=== PATIENT | female | born 2000 | race Caucasian/White ===

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

== ENCOUNTER 2023-01-27 08:23 | Emergency (ER) | payer OTHER, SELFPAY ==
--- NOTE | ~2023-01-27 | XR_ITS ---
EXAMINATION: XR FOREARM, RIGHT CLINICAL INFORMATION: Laceration of forearm. Evaluate for foreign body. COMPARISON: None available. TECHNIQUE: AP and lateral views of the right forearm were obtained. FINDINGS: There is a linear soft tissue defect from laceration in the medial aspect of the proximal forearm without radiopaque foreign body. The elbow and wrist are normal. The radius and ulna are intact. XR/XR forearm RT 2V IMPRESSION: * Soft tissue laceration of the proximal forearm. * No evidence of radiopaque foreign body. * No acute osseous injury.
[2023-01-27 08:31] VITALS: BP 112/75; PULSE 92; RESP 16; TEMP 36.3; O2SAT 98; BMI 27.6
--- NOTE | 2023-01-27 09:13 | ED.WOUNDLAC ---
HPI - Wound/Laceration General Chief Complaint: Wound/Laceration Stated Complaint: R Arm Lac S/P Injury 01/27/23 Time Seen by Provider: 01/27/23 09:03 Source: patient and RN notes reviewed Mode of arrival: ambulatory Limitations: no limitations History of Present Illness HPI narrative: This is a 22 year old female presenting to the emergency department for evaluation of right forearm laceration which occurred this morning. Patient states that she was knocking on a glass window when it suddenly shattered and lacerated her right forearm. The ambulance brought her to [facility] where she was not seen and left prior to having this wound closed. Patient reports that she is right handed. Reports burning sensation around the wounds, otherwise pain well controlled. She is unsure when her last tetanus shot was, and has not been seen by primary care physician in about 6 years. Denies taking any medications at home to treat her current symptoms. No other complaints or concerns at this time. Onset (ago): day(s) Extremity Location: right: forearm Place: home Patient tetanus UTD: No Context: accidental Associated symptoms: pain Treatments prior to arrival: bandage Related Data Previous Rx's Medication Instructions Recorded cephalexin 500 mg capsule 500 mg PO QID 5 days #20 caps 01/27/23 ibuprofen 600 mg tablet 600 mg PO Q6-8H PRN pain #30 tabs 01/27/23 Allergies Allergy/AdvReac Type Severity Reaction Status Date / Time No Known Allergies Allergy Verified 01/27/23 09:12 Review of Systems Review of Systems: Yes all other systems are reviewed and are negative [facility] Social History Social History Advance Directives: No Advance Directives Information Provided: No Physical Exam Vital Signs: Vital Signs: Last Vital Signs Temp 97.3 F 01/27/23 08:31 Pulse 92 01/27/23 08:31 Resp 16 01/27/23 08:31 BP 112/75 01/27/23 08:31 Pulse Ox 98 01/27/23 08:31 O2 Del Method Room Air 01/27/23 08:31 BMI result Body Mass Index 27.6 Const: Other: General: Awake, alert, and oriented X3. No acute distress. HEENT: Normal inspection CVS: Normal heart rate and rhythm. Pulses normal. Respiratory: No respiratory distress Skin: Warm, dry, no rashes noted to exposed skin. Normal skin color. Normal skin turgor. Extremities: Right forearm: 2 4cm partial thickness lacerations noted to forearm. No active bleeding. Full ROM of all digits and elbow without difficulty. Neuro: Oriented X 3. No motor deficit. No sensory deficit. Course Reevaluation(s) Reevaluation #1: X-rays did not show any foreign body. Both wounds closed using 4-0 nylon sutures, see procedure note for further details. Patient tolerated procedure well without any complications or concerns. Wound dressed with bacitracin, patient given tetanus and department, and medicated with Motrin 600 mg by mouth. Patient discharged on ibuprofen and Keflex. Advised to return or go to any medical office to have these removed in 7-10 days. Patient understands and agrees with plan. Patient stable for discharge. Time: 12:25 Medications Administered Discontinued Medications Generic Name Dose Route Start Last Admin Trade Name Freq PRN Reason Stop Dose Admin Diphtheria/Tetanus/Acell Pertussis 0.5 ml 01/27/23 09:12 01/27/23 09:17 Diphth,Pertus(Acell),Tet Adult 0.5 Ml Syringe IM 01/27/23 09:13 0.5 ml .ONCE ONE Administration Ibuprofen 600 mg 01/27/23 12:20 01/27/23 12:28 Ibuprofen 600 Mg Tablet PO 01/27/23 12:21 600 mg ONCE ONE Administration Lidocaine HCl 5 ml 01/27/23 09:12 01/27/23 09:17 Lidocaine Hcl 1 % Mpf 5 Ml Vial INFILTRATI 01/27/23 09:13 5 ml ONCE ONE Administration Lidocaine HCl 5 ml 01/27/23 11:30 01/27/23 11:39 Lidocaine Hcl 1 % Mpf 5 Ml Vial INFILTRATI 01/27/23 11:31 5 ml ONCE ONE Administration Medical Decision Making Medical Decision Making MDM Narrative: This is a 22-year-old female presenting to the emergency department for evaluation of right forearm laceration which occurred this morning. On arrival, vital signs within normal limits. Patient has to 4 cm lacerations noted to her right forearm, requiring suture repair. Patient has full range of motion of all digits without any numbness and tingling. No tendon involvement injury suspected. Unsure when her last tetanus was, will update in the department today. Differential Diagnosis Differential Diagnoses: The differential diagnosis associated with the presentation includes Laceration, puncture wound, cellulitis, abrasion Procedures Laceration Laceration 1: Site: upper extremity Side (If applicable): right Size (cm): 4 Description: linear Depth: simple, single layer Local Anesthetic: lidocaine 1% Amount of anesthesia used (mL): 5 Pre-repair: wound explored, irrigated extensively and deep structures intact Skin layer closed with: nylon Size (cm): 4-0 Number of sutures: 7 Technique: simple, interrupted Laceration 2: Site: upper extremity Side (If applicable): right Size (cm): 4 Description: linear Depth: simple, single layer Local Anesthetic: lidocaine 1% Amount of anesthesia used (mL): 5 Pre-repair: wound explored, irrigated extensively and deep structures intact Skin layer closed with: nylon Size (cm): 4-0 Number of sutures: 7 Technique: simple, interrupted Discharge Plan Discharge Clinical Impression: Laceration Patient Disposition: Home, Self-Care Instructions: Care For Your Stitches (ED), Laceration (ED) Additional Instructions: You came to the emergency room for lacerations to your right arm. Please the wound clean and dry. You may rinse with warm soapy water. Do not pick or scratch at the wound. Please have sutures removed in 7-10 days. You may return here or go to a urgent care or primary care office to have these removed. Watch for any signs of infection including but not limited to fevers, chills, increased redness, drainage. Please take prescribed antibiotic as directed. Finish the entire course. We updated your tetanus vaccination in the department today. If any new or worsening symptoms occur please return for re-evaluation. Prescriptions: New cephalexin 500 mg capsule 500 mg PO QID 5 Days Qty: 20 0RF ibuprofen 600 mg tablet 600 mg PO Q6-8H PRN (Reason: pain) Qty: 30 0RF Discharge Date/Time: 01/27/23 12:33
[2023-01-27] MEDS: Diphth,Pertus(ACell),Tet Adult 0.5 ML SYRINGE IM (09:17)
[2023-01-27] MEDS: Lidocaine HCl 1 % MPF 5 ML VIAL INFILTRATI ×2 (09:17→11:39)
[2023-01-27] MEDS: Ibuprofen 600 MG TABLET PO (12:28)
== END 2023-01-27 12:33 | disposition home or self-care (01) ==
PROVIDERS: Emergency Provider Emergency Medicine
DX: S51.811A Laceration without foreign body of right forearm, initial encounter (principal); W25.XXXA Contact with sharp glass, initial encounter; Y93.9 Activity, unspecified; Y92.9 Unspecified place or not applicable; Y99.9 Unspecified external cause status
CPT/HCPCS: 12004; 73090; 90471; 90715; 99283; 99284

== ENCOUNTER 2023-02-24 07:00 | Emergency (ER) | payer OTHER, SELFPAY ==
--- NOTE | ~2023-02-24 | US_ITS ---
EXAMINATION: US OBSTETRICAL ULTRASOUND CLINICAL INFORMATION: with vaginal bleeding COMPARISON: None available. LMP: 01/16/2023. Gestational age by maternal dates is 5 weeks 4 days. Estimated date of delivery by maternal dates is 10/23/2023. TECHNIQUE: Routine transabdominal imaging of pelvis is performed. FINDINGS: The uterus is enlarged measuring 7.21) in length, 4.01) in AP and 6.3) in transverse dimension. There is a single intrauterine gestational sac with visible yolk sac. The pole and cardiac activity is not visualized. There is a small hypoechoic area question small subchorionic bleed versus early decidual reaction consider follow-up Gestational sac measures 1.16 x 0.80 x 0.6) corresponding to 5 weeks and 5 days. MATERNAL ADNEXA: The right maternal ovary measures 4.0 x 1.9 x 1.9 cm. There is anechoic corpus luteal cyst measuring 1.9 x 1.6 x 1.7 cm. The left maternal ovary measures 2.5 x 1.1 x 1.5 cm. It appears unremarkable. There is no significant maternal adnexal mass. No maternal pelvic ascites. US/US OB pelvic and transvaginal IMPRESSION: 1. Single intrauterine gestational sac measuring 5 weeks and 5 days. pole and cardiac activity is not seen. Likely too early in . Recommend follow-up in one to 2 weeks. 2. Suspect subchorionic tiny bleed versus decidual reaction. 3. Small corpus luteal cyst right ovary.
[2023-02-24 07:09] VITALS: BP 131/74; PULSE 75; RESP 16; TEMP 36.9; O2SAT 99; BMI 30.4
[2023-02-24 07:24] LABS: MANUAL DIFF FLAG NO
[2023-02-24 07:26] LABS: Basophils Absolute Auto 0.1 X10*3/uL (0.0-0.2); Basophils Percent Auto 0.4 % (0-2); Eosinophils Absolute Auto 0.3 X10*3/uL (0.0-0.4); Hematocrit 37.8 % (37.0-47.0); Imm Gran Pct Auto 0.7 % (0.0-0.4); Lymphocytes Percent Auto 19.8 % (20-40); Mean Corpuscular HGB Conc 34.4 g/dl (31.0-35.0); Mean Corpuscular Hemoglobin 32.2 pg (27.0-33.0); Mean Corpuscular Volume 93.6 fL (80.0-98.0); Mean Platelet Volume 10.2 fL (9.4-12.3); Monocytes Absolute Auto 1.1 X10*3/uL (0.1-1.2); Monocytes Percent Auto 7.3 % (2-11); Neutrophils Absolute Auto 10.6 x10*3/uL (2.0-8.3); Neutrophils Percent Auto 69.8 % (45-73); Platelet Count 301 X10*3/uL (160-400); Red Blood Count 4.04 X10*6/uL (4.20-5.50); Red Cell Distribution Width 12.3 % (11.0-16.0); White Blood Count 15.1 X10*3/uL (4.8-10.8)
[2023-02-24 07:30] LABS: UPreg QC Valid YES; Urine Pregnancy POSITIVE (NEGATIVE)
[2023-02-24 07:34] LABS: Color Urine Red; Glucose Urine UA Negative (Negative); Leukocyte Esterase Urine Negative (Negative); Nitrite Urine Negative (Negative); PH 5.5 (5.0-9.0); UMIC TRIGGER UACC YES; Urine Blood Large (3+) (Negative); Urine Ketones Negative (Negative); Urine Protein Trace mg/dL (Neg-Trace)
[2023-02-24 07:35] LABS: Appearance Urine Hazy; Bacteria Urine None Seen (None Seen); Hyaline Casts Urine 0-2 /LPF (0-2); RBC Urine >20 /HPF (0-2); Squamous Epithelial Cell Urine 0-2 /HPF (0-2); WBC Urine 0-5 /HPF (0-5)
[2023-02-24 07:43] LABS: Anion Gap 11 (12-20); Blood Urea Nitrogen 9 mg/dL (9-16); Calcium 9.2 mg/dL (8.4-10.2); Carbon Dioxide 22 mmol/L (22-29); Chloride 111 mmol/L (96-108); Creatinine Clr Calc Pharmacy 112.5; Estimated Glomerular Filt Rate > 60; Glucose Random 98 mg/dL (60-115); Potassium 4.6 mmol/L (3.3-5.1); Sodium 139 mmol/L (135-145)
--- NOTE | 2023-02-24 08:03 | PC.NURSE ---
Patient placed in [facility] 3. Admits to being 5 weeks ; woke up with +vaginal bleeding with small clots. Denies cramping. NAD. Resting on stretcher at this time. Waiting for provider evaluation
[2023-02-24 08:18] LABS: HCG Quantitative 15851 mIU/mL
[2023-02-24 10:01] LABS: Alanine Aminotransferase 19 U/L (0-31); Albumin Level 4.1 g/dL (3.5-5.0); Alkaline Phosphatase 50 U/L (39-117); Aspartate Amino Transferase 17 U/L (5-31); Bilirubin Direct < 0.2 mg/dL (0.0-0.5); Bilirubin Total 0.2 mg/dL (0.0-1.0); Total Protein 7.5 g/dL (6.5-8.0)
--- NOTE | 2023-02-24 10:30 | ED.GENADULT ---
HPI - General Adult General Chief complaint: Vaginal Bleeding Stated complaint: 6 Wks Spotting Time Seen by Provider: 02/24/23 09:26 Source: patient Mode of arrival: ambulatory Limitations: no limitations History of Present Illness HPI narrative: 22-year-old female about 5-6 weeks presents to ED waking up to vaginal bleeding/ blood clots with mild abdominal cramping. Patient denies any recent trauma to abdomen or pelvic area. Patient states no fever or chills. Patient states this is her 1st . Related Data Previous Rx's Medication Instructions Recorded cephalexin 500 mg capsule 500 mg PO QID 5 days #20 caps 01/27/23 ibuprofen 600 mg tablet 600 mg PO Q6-8H PRN pain #30 tabs 01/27/23 Allergies Allergy/AdvReac Type Severity Reaction Status Date / Time No Known Allergies Allergy Verified 02/24/23 07:08 Review of Systems Review of Systems: , pelvic cramping, blood clots Yes all other systems are reviewed and are negative PMFSH Social History Advance Directives: No Advance Directives Information Provided: No Physical Exam ED Vital Signs: Vital Signs - 24 hr 02/24/23 07:09 02/24/23 11:13 Temperature 98.4 F 99.1 F Pulse Rate 75 76 Respiratory Rate 16 18 Blood Pressure 131/74 112/70 Pulse Oximetry 99 99 Oxygen Delivery Method Room Air Room Air BMI result Body Mass Index 30.4 Const General: cooperative, healthy appearing, comfortable, no acute distress, well developed, alert, awake and Physically active Orientation/consciousness: oriented to person, oriented to place, oriented to time and patient oriented x3 HENMT Head: Yes normal to inspection, Yes No palpable skull fracture present, Yes normocephalic and Yes atraumatic Eyes General: appearance normal, both eyes and all related structures Neck Neck: Yes normal visual inspection, Yes full ROM, Yes no lymphadenopathy, Yes no meningeal signs, Yes trachea midline, No anterior neck swelling and No tender Chest Chest palpation & inspection: normal inspection of the chest and normal palpation of entire chest wall Resp Effort & Inspection: normal respiratory effort and able to speak in complete sentences Auscultation: clear to auscultation bilaterally Cardio Jugular venous distension: no JVD Heart sounds: S1 normal heart sound present and S2 normal heart sound present GI Inspection: Yes normal to inspection and No abdominal wall ecchymosis Palpation (GI): Soft to palpation, not firm, nontender, no guarding and not rigid General: No CVA tenderness and Yes no CVA tenderness Back/Spine/Pelvis Back: no CVA tenderness, No CVA tenderness and No back tenderness Skin General skin exam: no rashes or lesions noted, elasticity normal and turgor normal Neuro General: oriented to person, oriented to place, oriented to time, patient oriented x3, gait normal, tone normal, moves all extremities, Normal light touch and pain sensation, no meningeal signs, no focal motor deficits, CN's II-XI intact bilaterally and normal sensation to monofilament Extrem General: Yes normal to inspection and Yes full ROM Psych Appearance: grossly normal, well kempt and not disheveled Medical Decision Making Medical Decision Making [facility] Narrative: 22-year-old female presents to ED for so with vaginal bleeding spotting which began this morning. Patient states episode of vaginal blood clots. Patient states mild abdominal cramping. Patient denies any recent trauma to abdomen or pelvic or genital area. Labs ultrasound ordered. 11: 50 a.m.. Pelvic exam negative for any active bleeding. Cervical os closed. Negative for adnexal tenderness. Patient Rh positive. No need for RhoGAM. Ultrasound shows gestational sac without pole. Does show subchronioc possible bleed. Patient informed to follow-up with OBGYN. Patient stable Differential Diagnosis Differential Diagnoses: The differential diagnosis associated with the presentation includes ( THreatened , ectopic , complete , UTI, kidney stones) Admission/Observation Consideration of admission/observation: Escalation of care including admission/observation considered Lab Data [facility] Lab Attestation statement: I reviewed the patient's lab results. 02/24/23 07:19 02/24/23 07:19 Labs: Lab Results 02/24/23 02/24/23 02/24/23 Range/Units 07:18 07:19 10:47 WBC 15.1 H (4.8-10.8) X10*3/uL RBC 4.04 L (4.20-5.50) X10*6/uL Hgb 13.0 (12.0-16.0) g/dl Hct 37.8 (37.0-47.0) % MCV 93.6 (80.0-98.0) fL MCH 32.2 (27.0-33.0) pg MCHC 34.4 (31.0-35.0) g/dl RDW 12.3 (11.0-16.0) % Plt Count 301 (160-400) X10*3/uL MPV 10.2 (9.4-12.3) fL Immature Gran % (Auto) 0.7 H (0.0-0.4) % Neut % (Auto) 69.8 (45-73) % Lymph % (Auto) 19.8 L (20-40) % [place] % (Auto) 7.3 (2-11) % Eos % (Auto) 2.0 (0-4) % Baso % (Auto) 0.4 (0-2) % Lymph # (Auto) 3.0 (1.2-4.9) X10*3/uL [place] # (Auto) 1.1 (0.1-1.2) X10*3/uL Eos # (Auto) 0.3 (0.0-0.4) X10*3/uL Baso # (Auto) 0.1 (0.0-0.2) X10*3/uL Abs Immat Gran (auto) 0.10 H (0.00-0.03) X10*3/uL Absolute Neuts (auto) 10.6 H (2.0-8.3) x10*3/uL Absolute Nucleated RBC 0.000 (0.0-0.012) X10*3/uL Nucleated RBC % (auto) 0.0 (0.0-0.2) /100WBC PT 14.4 H (11.1-13.3) SEC INR 1.2 H (0.9-1.1) APTT 29.5 (26.0-36.4) SEC Sodium 139 (135-145) mmol/L Potassium 4.6 (3.3-5.1) mmol/L Chloride 111 H (96-108) mmol/L Carbon Dioxide 22 (22-29) mmol/L Anion Gap 11 L (12-20) BUN 9 (9-16) mg/dL Creatinine 0.67 (0.5-1.4) mg/dL Estim Creat Clear Calc 112.5 Estimated GFR > 60 Random Glucose 98 (60-115) mg/dL Calcium 9.2 (8.4-10.2) mg/dL Total Bilirubin 0.2 (0.0-1.0) mg/dL Direct Bilirubin < 0.2 (0.0-0.5) mg/dL AST 17 (5-31) U/L ALT 19 (0-31) U/L Alkaline Phosphatase 50 (39-117) U/L Total Protein 7.5 (6.5-8.0) g/dL Albumin 4.1 (3.5-5.0) g/dL Beta HCG, Quant 71066 mIU/mL Urine Color Red A Urine Appearance Hazy Urine pH 5.5 (5.0-9.0) Ur Specific [place] 1.010 (1.005-1.025) Urine Protein Trace (Neg-Trace) mg/dL Urine Glucose (UA) Negative (Negative) mg/dL Urine Ketones Negative (Negative) mg/dL Urine Blood Large (3+) H (Negative) Urine Nitrite Negative (Negative) Ur Leukocyte Esterase Negative (Negative) Urine RBC >20 H (0-2) /HPF Urine WBC 0-5 (0-5) /HPF Ur Squamous Epith Cells 0-2 (0-2) /HPF Urine Bacteria None Seen (None Seen) Hyaline Casts 0-2 (0-2) /LPF Urine Test POSITIVE H (NEGATIVE) Blood Type B Positive Independent Interpretation I performed an independent interpretation of an: Ultrasound Radiology Impression Discussion of test interpretation with radiology: I have reviewed the radiologist's reading. External Record Review External record reviewed: Other (Prior ED visit) Discharge Plan Discharge Clinical Impression: Threatened Patient Disposition: Home, Self-Care Instructions: Threatened Miscarriage (ED) Additional Instructions: recommend follow-up with OBGYN. Return to the ED immediately for any worsening abdominal pain, profuse vaginal bleeding, weakness, dizziness, flank pain, fever, chills, or any other concerning symptoms. Prescriptions: No Action cephalexin 500 mg capsule 500 mg PO QID 5 Days Qty: 20 0RF ibuprofen 600 mg tablet 600 mg PO Q6-8H PRN (Reason: pain) Qty: 30 0RF Referrals: Sincere Petersen MD [Physician] - ( Five weeks threatened miscarriage) Stand Alone Forms: Work/School Release Interventions: ED Discharge Assessment Last Done: 02/24/23 12:08 Discharge Date/Time: 11/22/23 12:11 Print Language: Indonesian
[2023-02-24 11:00] LABS: INTERNATIONAL NORM RATIO 1.2 (0.9-1.1); Prothrombin Time 14.4 SEC (11.1-13.3)
[2023-02-24 11:03] LABS: Partial Thromboplastin Time 29.5 SEC (26.0-36.4)
[2023-02-24 11:13] VITALS: BP 112/70; PULSE 76; RESP 18; TEMP 37.3; O2SAT 99
== END 2023-02-24 12:11 | disposition home or self-care (01) ==
PROVIDERS: Physician Assistant; Emergency Provider Emergency Medicine
DX: O20.0 Threatened abortion (principal); Z3A.01 Less than 8 weeks gestation of pregnancy
CPT/HCPCS: 36415; 76801; 76817; 80048; 80076; 81001; 81025; 84702; 85025; 85610; 85730; 86900; 86901; 99283; 99284